=== PATIENT | female | born 1940 | race Caucasian/White ===

== ENCOUNTER 2018-07-24 13:08 | Emergency (ER) | payer OTHER | END 2018-07-24 16:00 | disposition home or self-care (01) | LOC: FTE 16:00 | DX: S20.219A Contusion of unspecified front wall of thorax, initial encounter (principal); I10 Essential (primary) hypertension; V47.6XXA Car passenger injured in collision with fixed or stationary object in traffic accident, initial encounter | CPT/HCPCS: 71250; 93005; 99284-25 ==